=== PATIENT | male | born 1960 | race American Indian/Alaskan Native ===

== ENCOUNTER 2017-03-02 15:13 | Outpatient (CLI) | payer OTHER ==
--- NOTE | 2017-03-02 19:04 | XRay Report ---
FINAL REPORT EXAM: XR HIP 2-3V LT HISTORY: LEFT HIP PAIN TECHNIQUE: Left hip and AP pelvis PRIORS: None. FINDINGS: No fracture identified. No dislocation seen. Femoral head maintains a normal contour. There is moderate degenerative joint space narrowing with small marginal acetabular osteophytes present. Adjacent bony pelvis is unremarkable IMPRESSION: Moderate DJD No acute fracture identified
--- NOTE | 2017-03-02 19:10 | XRay Report ---
FINAL REPORT EXAM: XR HAND 3+V RT HISTORY: RIGHT HAND PAIN TECHNIQUE: 3 views right hand PRIORS: None. FINDINGS: No fracture is identified. No dislocation seen. There is degenerative joint space narrowing at the trapezium 1st metacarpal joint. No erosive bony change identified. Carpal bones maintain normal alignment. Distal radius and ulna are intact. No radiopaque foreign bodies seen. IMPRESSION: DJD at the trapezium 1st metacarpal joint No additional acute findings.
--- NOTE | 2017-03-02 20:28 | XRay Report ---
FINAL REPORT EXAM: XR SPINE LUMBOSACRAL 2-3V HISTORY: BACK PAIN TECHNIQUE: Lumbar spine three views PRIORS: None. FINDINGS: There is cortical irregularity at the superior anterior endplate of L2 suspicious for acute fracture. There is degenerative disc space narrowing with marginal osteophyte present L3-L4 L4-5 and L5-S1. Vertebral bodies are normal in alignment. Posterior elements appear intact. There is facet joint arthropathy present L4-5 L5-S1 The SI joints are unremarkable IMPRESSION: Suspect acute fracture the anterior L1 vertebral body. 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
== END 2017-03-02 15:14 | disposition home or self-care (01) ==
LOC: XRAY 15:13
PROVIDERS: ATTEND Internal Medicine
DX: Z02.71 Encounter for disability determination (principal); M51.36 Other intervertebral disc degeneration, lumbar region; M18.9 Osteoarthritis of first carpometacarpal joint, unspecified; M16.12 Unilateral primary osteoarthritis, left hip
CPT/HCPCS: 72100

== ENCOUNTER 2019-05-14 12:18 | Outpatient (CLI) | payer OTHER ==
--- NOTE | 2019-05-14 14:23 | XRay Report ---
RIGHT HIP 3 VIEWS INDICATION / CLINICAL INFORMATION: M25.551 PAIN IN RIGHT HIP COMPARISON: 03/02/2017. FINDINGS: BONES / JOINT(S): No acute fracture or subluxation. Moderate DJD. Previous placement left hip prosthe sis. SOFT TISSUES: No significant abnormality. ADDITIONAL FINDINGS: None. Signer Name: Ramana Braga MD Signed: 05/14/2019 2:18 PM Workstation Name: [id number]
== END 2019-05-14 12:19 | disposition home or self-care (01) ==
LOC: XRAY 12:18
PROVIDERS: ATTEND Orthopaedic Surgery
DX: M16.11 Unilateral primary osteoarthritis, right hip (principal); Z96.642 Presence of left artificial hip joint

== ENCOUNTER 2019-07-16 12:33 | Outpatient (CLI) | payer OTHER ==
--- NOTE | 2019-07-16 14:04 | XRay Report ---
RIGHT HIP 2 VIEWS INDICATION: UNILATERAL PRIMARY OSTEOARTHRITIS,RIGHT HIP. PAIN IN RIGHT HIP. COMPARISON: 05/31/2019 IMPRESSION: Right hip arthroplasty changes appear stable since 05/31/2019 exam. The hardware appears well applied. No evidence for fracture, malalignment or loosening. The soft tissues are unremarkable . Signer Name: Talat Montague Jr, MD Signed: 07/16/2019 2:00 PM Workstation Name: [id number]
== END 2019-07-16 12:34 | disposition home or self-care (01) ==
LOC: XRAY 12:33
PROVIDERS: ATTEND Orthopaedic Surgery
DX: M16.11 Unilateral primary osteoarthritis, right hip (principal); M25.551 Pain in right hip

== ENCOUNTER 2020-01-02 11:10 | Outpatient (CLI) | payer OTHER ==
--- NOTE | 2020-01-02 13:04 | XRay Report ---
SKULL ROUTINE 4 VIEWS INDICATION: RETAINED METAL FRAGMENTS INSPECIFIED. COMPARISON: None. IMPRESSION: A 3 mm metallic density is identified in the left frontal bone or left frontal soft tiss ues which is consistent with a retained metal fragment. No additional foreign bodies are identified. The calvarium is intact. The sinuses and mastoid air cells are well-aerated. Signer Name: Talat Montague Jr, MD Signed: 01/02/2020 1:00 PM Workstation Name: [id number]
== END 2020-01-02 11:11 | disposition home or self-care (01) ==
LOC: XRAY 11:10
PROVIDERS: ATTEND Orthopaedic Surgery
DX: Z18.10 Retained metal fragments, unspecified (principal)
CPT/HCPCS: 70260